=== PATIENT | male | born 1995 | race Caucasian/White ===

== ENCOUNTER 2019-07-24 22:24 | Emergency (ER) | payer MEDICAID ==
[~2019-07-24] VITALS: Ht 170.2 cm; Wt 61.0 kg
[2019-07-24 22:55] VITALS: BP 119/73
== END 2019-07-25 08:23 | disposition left against medical advice (07) ==
LOC: ER 07-25 08:06
DX: R11.2 Nausea with vomiting, unspecified (principal); R10.9 Unspecified abdominal pain; Z53.21 Procedure and treatment not carried out due to patient leaving prior to being seen by health care provider

== ENCOUNTER 2022-05-13 23:42 | Emergency (ER) | payer MEDICAID ==
[~2022-05-13] VITALS: Ht 172.7 cm; Wt 68.0 kg
[2022-05-14] MEDS ORDERED: TETANUS, DIPHTHERIA, PERTUSSIS VAC/PF 0.5ML (>10YR OLD) IM ONE
[2022-05-14 00:21] LABS: HEMATOCRIT. 43.8 % (42.0-52.0); HEMOGLOBIN. 14.7 g/dL (14.0-18.0); MEAN CORPUSCULAR HEMOGLOBIN 31.1 pg (28.0-32.0); MEAN CORPUSCULAR VOLUME 92.8 fL (80.0-94.0); MEAN PLATELET VOLUME 8.2 fl (7.4-10.4); PLATELET 218 x1000/uL (130-400); RED BLOOD CELL COUNT 4.72 mill/uL (4.7-6.1); RED CELL DISTRIBUTION WIDTH 13.6 % (11.6-14.6)
[2022-05-14 00:24] LABS: CHLORIDE 94 mEq/L (98-107)
[2022-05-14 00:44] LABS: CREATINE KINASE 1175 IU/L (39-308); ETHANOL BLOOD 82 mg/dL
[2022-05-14] MEDS ORDERED: SODIUM CHLORIDE 0.9% 1,000 ML IV ONE ×2 (01:00)
[2022-05-14 01:18] LABS: PLATELET ESTIMATE NORMAL
[2022-05-14] MEDS: TETANUS, DIPHTHERIA, PERTUSSIS VAC/PF 0.5ML (>10YR OLD) IM ONE ×2 (02:52→02:54)
[2022-05-14 04:13] LABS: CLARITY URINE CLEAR (CLEAR); COLOR URINE YELLOW (YELLOW); KETONES URINE NEGATIVE (NEGATIVE); LEUKOCYTE ESTERASE URINE NEGATIVE (NEGATIVE); NITRITE URINE NEGATIVE (NEGATIVE); OCCULT BLOOD URINE 1+ (NEGATIVE); PROTEIN URINE NEGATIVE (NEGATIVE); SPECIFIC GRAVITY URINE 1.004 (1.005-1.030); UROBILINOGEN URINE 0.2 E.U./dL (0.2-1.0)
[2022-05-14 05:24] LABS: *AMPHETAMINES SCREEN URINE PRESUMTIVE POSITIVE (NEGATIVE); *BARBITURATES SCREEN URINE NEGATIVE (NEGATIVE); *BENZODIAZEPINES SCREEN URINE PRESUMTIVE POSITIVE (NEGATIVE); *COCAINE SCREEN URINE PRESUMTIVE POSITIVE (NEGATIVE); CANNABINOID URINE SCREEN NEGATIVE (NEGATIVE); METHADONE URINE SCREEN NEGATIVE (NEGATIVE); OPIATES URINE SCREEN NEGATIVE (NEGATIVE); PHENCYCLIDINE URINE SCREEN NEGATIVE (NEGATIVE)
[2022-05-14 05:58] VITALS: BP 128/64
== END 2022-05-14 05:59 | disposition home or self-care (01) ==
LOC: ER 23:42
DX: F14.188 Cocaine abuse with other cocaine-induced disorder (principal); F10.129 Alcohol abuse with intoxication, unspecified; Y90.4 Blood alcohol level of 80-99 mg/100 ml; S93.492A Sprain of other ligament of left ankle, initial encounter; X58.XXXA Exposure to other specified factors, initial encounter; R74.02 Elevation of levels of lactic acid dehydrogenase [LDH]; F15.10 Other stimulant abuse, uncomplicated; F12.90 Cannabis use, unspecified, uncomplicated; Y93.89 Activity, other specified; Z78.1 Physical restraint status; Y92.017 Garden or yard in single-family (private) house as the place of occurrence of the external cause
CPT/HCPCS: 36415; 70450; 73610; 80053; 80305; 80307; 80320; 80329; 81003; 82140; 82550; 83605; 83690; 85025; 90715; 96360; 96361; 99285; J7030; G0480

== ENCOUNTER 2025-03-16 23:09 | Emergency (ER) | payer OTHER ==
[~2025-03-16] VITALS: Ht 170.2 cm; Wt 56.0 kg
[2025-03-16 23:51] VITALS: O2SAT 98
[2025-03-17] MEDS: IBUPROFEN 600MG TABLET PO ONE (00:57)
[2025-03-17] MEDS: AZITHROMYCIN 500 MG TABLET PO ONE (00:58)
[2025-03-17] MEDS: CEFTRIAXONE SODIUM 500MG VIAL IM ONE (01:00)
[2025-03-17] MEDS ORDERED: DOXY100C5 MT (01:05)
[2025-03-17 01:21] VITALS: BP 117/75; PULSE 63; RESP 17; TEMP 36.6; O2SAT 98
== END 2025-03-17 01:39 | disposition home or self-care (01) ==
LOC: ER 23:09
DX: N48.22 Cellulitis of corpus cavernosum and penis (principal); F12.90 Cannabis use, unspecified, uncomplicated; F14.90 Cocaine use, unspecified, uncomplicated; Z98.890 Other specified postprocedural states
CPT/HCPCS: 99283; 86592; 86695; 86696; 96372; J0696